=== PATIENT | female | born 1980 | race Caucasian/White ===

== ENCOUNTER 2017-04-20 16:43 | Emergency (ER) | payer BC ==
[~2017-04-20] VITALS: Ht 157.5 cm; Wt 69.4 kg
[~2017-04-20 16:43] MED LIST: ADDERALL 20 MG20 M1 PO; ADVAIR 250-501 EACH INH; ALLEGRA ALLERG180 MG; ALLERGY10 M2 PO; AMITRIPTYLINE H25 M2 PO; ATIVAN1 MG PO; AUGMENTIN 875875 MG PO; AZITHROMYCIN 2250 MG; BACTRIM DS TAB1 EACH PO; BENTYL 10 MG CA10 M1 PO; CARAFATE 1 GM TA1 G1 PO; CLINDAGEL40 ML TP; FLONASE16 GM; HYDROCODONE-AP1 EAC6 PO; IBUPROFEN 600600 M1 PO; IBUPROFEN 800800 M1 PO; LEVAQUIN 500 M500 M2; MACROBID 100 M100 M1 PO; MIRALAX17 GM PO; NOHOMEMEDICATIONS; NORCO 5-325 TA1 EACH PO; NORFLEX100 MG PO; PERCOCET 5-3251 EACH PO; PHENTERMINE H37.5 MG PO; PREMARIN VAGI42.5 G1 TOP; PROTONIX40 M1 PO; PYRIDIUM200 MG PO; REGLAN 10 MG TA10 MG PO; SPIRIVA RESPIMAT4 G1 IH; SPIRONOLACTONE50 MG PO; SUDAFED 12 HOU120 MG; TESSALON PERLE100 MG PO; TRAMADOL 50 MG50 MG PO; VALIUM2 MG PO; VENTOLIN HFA 1818 GM INH
[2017-04-20 16:44] VITALS: BP 119/72
[2017-04-20 17:17] LABS: URINE BILIRUBIN NEGATIVE (Negative); URINE BLOOD TRACE (Negative); URINE COLOR ORANGE; URINE GLUCOSE-RANDOM* TRACE (Negative); URINE KETONES NEGATIVE (Negative); URINE NITRITE POSITIVE (Negative); URINE PROTEIN (DIPSTICK) TRACE (Negative); URINE SPECIFIC GRAVITY 1.025 (1.003-1.035)
[2017-04-20 17:29] LABS: BACTERIA >30 Many /HPF (None Seen); CASTS None Seen /LPF (None Seen); CRYSTALS None Seen /LPF (None Seen); SQUAMOUS >10 Many /LPF (0-3); URINE RBC 0-2 Rare /HPF (0-2)
[2017-04-20 17:30] LABS: RENAL EPITHELIAL CELLS 0-3 Few /LPF (None Seen); URINE WBC 6-15 Few /HPF (0-5)
[2017-04-20 17:36] LABS: ABSOLUTE NEUTROPHILS 3.1 thou/uL (1.4-8.2); BASOPHILS 0.7 % (0.0-2.0); HEMATOCRIT 37.4 % (37.0-47.0); HEMOGLOBIN 12.8 gm/dL (12.0-15.0); LYMPHOCYTES 38.1 % (24.0-44.0); MCH 32.4 pg (26.0-34.0); MCHC 34.2 g/dL (28.0-37.0); MCV 94.7 fL (80.0-100.0); MONOCYTES 6.3 % (1.0-8.0); PLATELET COUNT 218 thou/uL (150-400); POLYS 53.9 % (36.0-66.0); RBC 3.95 mil/uL (4.20-5.00); RDW 12.9 % (10.5-14.5); WBC 5.7 thou/uL (4.0-11.0)
[2017-04-20 17:38] LABS: MANUAL DIFF NO
[2017-04-20] MEDS ORDERED: KEFLEX500 MG PO (17:41)
[2017-04-20 17:43] LABS: ANION GAP 9 mmol/L (7-16); BUN 10 mg/dL (7-18); CALCIUM 8.7 mg/dL (8.5-10.1); CHLORIDE 104 mmol/L (98-107); CO2 23 mmol/L (21-32); CREATININE 0.9 mg/dL (0.6-1.0); GLUCOSE 106 mg/dL (74-106); POTASSIUM 4.1 mmol/L (3.5-5.1); SODIUM 136 mmol/L (136-145)
[2017-04-20 17:49] LABS: ALBUMIN 3.6 g/dL (3.4-5.0); ALKALINE PHOSPHATASE 92 U/L (46-116); DIRECT BILIRUBIN < 0.1 mg/dL (<0.1-0.3); SGOT 14 U/L (15-37); SGPT 17 U/L (30-65); TOTAL BILIRUBIN 0.4 mg/dL (<0.1-1.0); TOTAL PROTEIN 6.8 g/dL (6.4-8.2)
[2017-04-20] MEDS ORDERED: NORCO 5-325 TA1 EACH PO (18:00)
== END 2017-04-20 18:33 | disposition home or self-care (01) ==
LOC: ER 16:43
PROVIDERS: Emergency Medicine
DX: N30.10 Interstitial cystitis (chronic) without hematuria (principal); F10.99 Alcohol use, unspecified with unspecified alcohol-induced disorder; Z90.49 Acquired absence of other specified parts of digestive tract; Z87.440 Personal history of urinary (tract) infections; Z90.710 Acquired absence of both cervix and uterus; Z88.8 Allergy status to other drugs, medicaments and biological substances; Z88.1 Allergy status to other antibiotic agents

== ENCOUNTER 2017-04-26 04:42 | Emergency (ER) | payer BC ==
[~2017-04-26] VITALS: Ht 157.5 cm; Wt 69.4 kg
[~2017-04-26 04:42] MED LIST changes: +KEFLEX500 MG PO
[2017-04-26 06:14] LABS: URINE BILIRUBIN NEGATIVE (Negative); URINE BLOOD TRACE (Negative); URINE COLOR ORANGE; URINE GLUCOSE-RANDOM* TRACE (Negative); URINE KETONES TRACE (Negative); URINE LEUKOCYTES-REFLEX NEGATIVE (Negative); URINE PROTEIN (DIPSTICK) 2+ (Negative); URINE SPECIFIC GRAVITY >= 1.030 (1.003-1.035)
[2017-04-26 06:24] LABS: CASTS None Seen /LPF (None Seen); SQUAMOUS 0-3 Few /LPF (0-3)
[2017-04-26 06:25] LABS: CALCIUM OXALATE 4-10 Moderate /LPF (None Seen); CRYSTALS ND /LPF (None Seen); URINE RBC 0-2 Rare /HPF (0-2); URINE WBC-REFLEX 0-5 Rare /HPF (0-5)
[2017-04-26 08:10] VITALS: BP 116/66
[2017-04-29 18:07] LABS: CHLAMYDIA TRACHOMATIS-PCR Negative (Negative); NEISSERIA GONORRHEA-PCR Negative (Negative)
== END 2017-04-26 08:12 | disposition home or self-care (01) ==
LOC: ER 04:42
PROVIDERS: Emergency Medicine
DX: R10.2 Pelvic and perineal pain (principal); F10.99 Alcohol use, unspecified with unspecified alcohol-induced disorder; Z87.440 Personal history of urinary (tract) infections; Z90.710 Acquired absence of both cervix and uterus; Z98.890 Other specified postprocedural states; Z88.1 Allergy status to other antibiotic agents; Z88.8 Allergy status to other drugs, medicaments and biological substances

== ENCOUNTER 2018-01-15 13:18 | Emergency (ER) | payer BC ==
[~2018-01-15] VITALS: Ht 157.5 cm; Wt 70.3 kg
[2018-01-15 13:18] VITALS: BP 126/82
[2018-01-15 14:09] LABS: URINE BILIRUBIN NEGATIVE (Negative); URINE BLOOD NEGATIVE (Negative); URINE CLARITY CLEAR; URINE COLOR YELLOW; URINE GLUCOSE-RANDOM* TRACE (Negative); URINE KETONES NEGATIVE (Negative); URINE LEUKOCYTES-REFLEX 1+ (Negative); URINE NITRITE-REFLEX POSITIVE (Negative); URINE PROTEIN (DIPSTICK) TRACE (Negative); URINE SPECIFIC GRAVITY 1.025 (1.005-1.035)
[2018-01-15 14:22] LABS: BACTERIA-REFLEX >30 Many /HPF (None Seen); SQUAMOUS 4-10 Moderate /LPF (0-3); URINE WBC-REFLEX 6-15 Few /HPF (0-5)
[2018-01-15 14:23] LABS: RENAL EPITHELIAL CELLS 0-3 Few /LPF (None Seen); TRANSITIONAL EPITHEL CELL 0-3 Few /LPF (None Seen); URINE RBC 3-10 Few /HPF (0-2); YEAST-REFLEX Present (None Seen)
[2018-01-15 14:24] LABS: CASTS None Seen /LPF (None Seen); CRYSTALS None Seen /LPF (None Seen); WBC CLUMPS Occasional (None Seen)
[2018-01-15] MEDS ORDERED: DIFLUCAN150 MG PO (14:48)
[2018-01-15] MEDS ORDERED: KEFLEX500 M1 PO (14:48)
[2018-01-15] MEDS ORDERED: TINIDAZOLE500 MG PO (14:51)
[2018-01-16 14:12] LABS: NEISSERIA GONORRHEA-PCR Negative (Negative)
== END 2018-01-15 15:19 | disposition home or self-care (01) ==
LOC: ER 13:18
PROVIDERS: Physician Assistant
DX: B37.3 Candidiasis of vulva and vagina (principal); Z20.2 Contact with and (suspected) exposure to infections with a predominantly sexual mode of transmission; N76.0 Acute vaginitis; N39.0 Urinary tract infection, site not specified; Z90.49 Acquired absence of other specified parts of digestive tract; Z90.710 Acquired absence of both cervix and uterus; Z88.8 Allergy status to other drugs, medicaments and biological substances

== ENCOUNTER 2019-03-09 17:47 | Emergency (ER) | payer BC ==
[~2019-03-09] VITALS: Ht 157.5 cm; Wt 68.0 kg
[~2019-03-09 17:47] MED LIST changes: +DIFLUCAN150 MG PO; +KEFLEX500 M1 PO; +TINIDAZOLE500 MG PO
[2019-03-09 18:23] VITALS: BP 130/78
[2019-03-09] MEDS ORDERED: EQUETRO200 MG PO (20:33)
[2019-03-09] MEDS ORDERED: MEDROLDOSEPACK PO (20:33)
== END 2019-03-09 21:30 | disposition home or self-care (01) ==
LOC: ER 17:47
DX: R51 Headache (principal); R21 Rash and other nonspecific skin eruption; T78.40XA Allergy, unspecified, initial encounter; Z90.49 Acquired absence of other specified parts of digestive tract; Z98.51 Tubal ligation status; Z90.710 Acquired absence of both cervix and uterus; Z88.1 Allergy status to other antibiotic agents; Z88.8 Allergy status to other drugs, medicaments and biological substances

== ENCOUNTER 2019-03-21 20:07 | Emergency (ER) | payer BC ==
[~2019-03-21] VITALS: Ht 157.5 cm; Wt 68.0 kg
[~2019-03-21 20:07] MED LIST changes: +EQUETRO200 MG PO; +MEDROLDOSEPACK PO
[2019-03-21 21:23] LABS: ABSOLUTE NEUTROPHILS 2.6 thou/uL (1.4-8.2); BASOPHILS 0.9 % (0.0-2.0); EOSINOPHILS 0.5 % (0.0-3.0); HEMATOCRIT 40.3 % (37.0-47.0); HEMOGLOBIN 13.9 gm/dL (12.0-15.0); LYMPHOCYTES 52.6 % (24.0-44.0); MCH 32.3 pg (26.0-34.0); MCHC 34.4 g/dL (28.0-37.0); MCV 93.8 fL (80.0-100.0); MONOCYTES 6.3 % (1.0-8.0); PLATELET COUNT 246 thou/uL (150-400); POLYS 39.7 % (36.0-66.0); RDW 12.3 % (10.5-14.5); WBC 6.5 thou/uL (4.0-11.0)
[2019-03-21 21:32] LABS: CALCIUM 8.8 mg/dL (8.5-10.1); CREATININE 0.6 mg/dL (0.6-1.0); POTASSIUM 3.7 mmol/L (3.5-5.1)
[2019-03-21 21:39] LABS: ALBUMIN 3.5 g/dL (3.4-5.0); TOTAL BILIRUBIN 0.2 mg/dL (<0.1-1.0); TOTAL PROTEIN 6.9 g/dL (6.4-8.2)
[2019-03-21 23:05] VITALS: BP 109/61
== END 2019-03-21 23:05 | disposition home or self-care (01) ==
LOC: ER 20:07
PROVIDERS: Physician Assistant
DX: M54.81 Occipital neuralgia (principal); M54.2 Cervicalgia; Z98.51 Tubal ligation status; Z90.49 Acquired absence of other specified parts of digestive tract; Z87.440 Personal history of urinary (tract) infections; Z90.710 Acquired absence of both cervix and uterus; Z88.1 Allergy status to other antibiotic agents; Z88.8 Allergy status to other drugs, medicaments and biological substances

== ENCOUNTER 2019-03-23 17:35 | Emergency (ER) | payer BC ==
[~2019-03-23] VITALS: Ht 157.5 cm; Wt 68.0 kg
[2019-03-23] MEDS ORDERED: ORPHENADRINE C100 M2 PO (19:14)
[2019-03-23] MEDS ORDERED: NAPROSYN500 MG PO (19:14)
[2019-03-23 20:05] VITALS: BP 130/93
[2019-03-24] MEDS ORDERED: ATIVAN0.5 MG PO (10:17)
[2019-03-24] MEDS ORDERED: ATIVAN1 MG PO (12:12)
[2019-03-24] MEDS ORDERED: TRAMADOL 50 MG50 MG PO (12:12)
== END 2019-03-23 20:06 | disposition home or self-care (01) ==
LOC: ER 17:35
DX: S29.012A Strain of muscle and tendon of back wall of thorax, initial encounter (principal); M54.9 Dorsalgia, unspecified; G89.29 Other chronic pain; Z90.49 Acquired absence of other specified parts of digestive tract; Z87.440 Personal history of urinary (tract) infections; Z90.710 Acquired absence of both cervix and uterus; Z98.51 Tubal ligation status; Z88.1 Allergy status to other antibiotic agents; Z88.8 Allergy status to other drugs, medicaments and biological substances; X58.XXXA Exposure to other specified factors, initial encounter; Y93.89 Activity, other specified; Y92.89 Other specified places as the place of occurrence of the external cause; Y99.8 Other external cause status

== ENCOUNTER 2019-03-24 09:49 | Emergency (ER) | payer BC ==
[~2019-03-24] VITALS: Ht 157.5 cm; Wt 68.0 kg
[~2019-03-24 09:49] MED LIST changes: +NAPROSYN500 MG PO; +ORPHENADRINE C100 M2 PO
[2019-03-24] MEDS ORDERED: ATIVAN0.5 MG PO (10:17)
[2019-03-24 10:29] LABS: HEMATOCRIT 41.2 % (37.0-47.0); HEMOGLOBIN 14.1 gm/dL (12.0-15.0); MCH 32.3 pg (26.0-34.0); MCHC 34.2 g/dL (28.0-37.0); MCV 94.5 fL (80.0-100.0); RBC 4.36 mil/uL (4.20-5.00); RDW 12.2 % (10.5-14.5); WBC 4.6 thou/uL (4.0-11.0)
[2019-03-24 10:35] LABS: CREATININE 0.7 mg/dL (0.6-1.0); POTASSIUM 3.9 mmol/L (3.5-5.1)
[2019-03-24 12:12] VITALS: BP 104/70
[2019-03-24] MEDS ORDERED: TRAMADOL 50 MG50 MG PO (12:12)
[2019-03-24] MEDS ORDERED: ATIVAN1 MG PO (12:12)
== END 2019-03-24 12:12 | disposition home or self-care (01) ==
LOC: ER 09:49
PROVIDERS: Emergency Medicine Emergency Medical Services
DX: F41.9 Anxiety disorder, unspecified (principal); M54.9 Dorsalgia, unspecified; T50.995A Adverse effect of other drugs, medicaments and biological substances, initial encounter; Z88.8 Allergy status to other drugs, medicaments and biological substances; Z90.49 Acquired absence of other specified parts of digestive tract; Z90.710 Acquired absence of both cervix and uterus; Y92.89 Other specified places as the place of occurrence of the external cause

== ENCOUNTER 2019-03-30 21:15 | Emergency (ER) | payer BC ==
[~2019-03-30] VITALS: Ht 157.5 cm; Wt 65.8 kg
[~2019-03-30 21:15] MED LIST changes: +ATIVAN0.5 MG PO
[2019-03-30] MEDS ORDERED: CELEXA10 MG PO (22:00)
[2019-03-30] MEDS ORDERED: CLONAZEPAM 0.50.5 M1 (22:01)
[2019-03-30] MEDS ORDERED: PRILOSEC OTC20 MG PO (22:37)
[2019-03-30] MEDS ORDERED: ONDANSETRON ODT4 MG PO (22:37)
[2019-03-30 22:48] VITALS: BP 122/73
[2019-03-31] MEDS ORDERED: GABAPENTIN 100100 MG PO (14:41)
== END 2019-03-30 22:53 | disposition home or self-care (01) ==
LOC: ER 21:15
DX: F41.9 Anxiety disorder, unspecified (principal); R11.2 Nausea with vomiting, unspecified; G89.29 Other chronic pain; M54.9 Dorsalgia, unspecified; Z90.710 Acquired absence of both cervix and uterus; Z98.890 Other specified postprocedural states; Z90.49 Acquired absence of other specified parts of digestive tract; Z87.440 Personal history of urinary (tract) infections; Z88.8 Allergy status to other drugs, medicaments and biological substances; Z88.1 Allergy status to other antibiotic agents

== ENCOUNTER → 2019-03-31 | Outpatient (CLI) | payer BC ==
[~2019-03-31] VITALS: Ht 157.5 cm; Wt 65.3 kg
[~2019-03-31] MED LIST changes: +CELEXA10 MG PO; +CLONAZEPAM 0.50.5 M1; +GABAPENTIN 100100 MG PO; +ONDANSETRON ODT4 MG PO; +PRILOSEC OTC20 MG PO
[2019-03-31 13:07] VITALS: BP 125/76
--- NOTE | 2019-03-31 13:40 | NUR ---
Pain Clinic Assessment: 1. History of Osteoarthritis: History of Rheumatoid Arthritis: 2. Height: 5 ft. 2 in. 157.5 cm. Weight: 144.0 lb. oz. 65.318 kg. Patient's BMI: 26.3 3. Vital Signs: BP: 125/76 Pulse: 102 Resp: 14 Temp: 02 Sat: 100 ECG Mon: 4. Pain Intensity: 8 5. Fall Risk: Dizziness: Y Needs help standing or walking: N Fallen in the last 3 months: N Fall risk comments: 6. Patient on Blood Thinner: None 7. History of Hypertension: N 8. Opioid Therapy greater than 6 weeks: N Opiate Contract Signed: 9. Risk Assessment Tool Provided: 10. Functional Assessment Tool: 11. Recreational Drug Use: Never Drug Type: Tobacco Use: Never Smoker Tobacco Type: Amount or Packs/day: How Many Years: Alcohol Use: No Frequency: Quant:
--- NOTE | 2019-04-16 08:26 | HPC ---
[facility] [address] [address] PAIN MANAGEMENT CONSULTATION Name: LIAT ARMENDARIZ Room #: REG Erika Tiana#: [id number] Admission: 03/31/19 Attend Phys: Gerda Horn MD Discharge: Date of : 78 Report #: [id number] THIS REPORT FOR: //name// CC: Shreya Horn DATE OF SERVICE: 03/31/2019 CHIEF COMPLAINT: Pain in the right neck and swelling in the right jaw. HISTORY: The patient is a 39-year-old female, who has been referred to the pain clinic for evaluation. She states that she had a cosmetic procedure. She states that there was some filler placed under her right eye. After the injection, she noted some increased pain and discomfort in the right side of her face. There was some swelling noted. She could see an area of erythema on the right lower jaw area, this was in 08/2018. Her perception is that during the procedure, the doctor may have, "hit her nerve." Because of the pain and discomfort, she sought treatment by a dentist and ENT doctor. It was felt that maybe the problem in her jaw might be secondary to grinding of her teeth. As time went on, she continues to note some increasing pain and discomfort. She describes it as though she had, "her brain was on fire." She felt that the pain radiated down into her feet, face, and into her spinal cord. Also, had a burning sensation and discomfort in the abdominal area. Because of this problem, she has had sometimes when she felt dizzy and anxious. For evaluation, the patient underwent an MRI. She has felt like the contrast was stuck in the base of her neck. She did have some episodes of feeling nauseated. Previous MRIs did not cause any similar symptoms. The patient did have some symptoms where there was ringing in her ears, had a yellow discharge from her nose, and the patient felt that she may have had hepatitis. Testing proved negative. The patient has had a panic attack in the past. She has noted on occasion some enlargement of the right side of her face with more erythema in the right lower jaw area. The patient has been seen in the Emergency Room on a number of occasions. It was felt that the patient did suffer from occipital neuralgia. A occipital nerve block was provided in the Emergency Room. The patient states that the injection placed her in a manic state. She feels that it was secondary to use of steroids. The patient felt that for about a week she had some dry heaves as well as some dryness in her mouth. The patient has been referred to [facility] to be evaluated with regards to mental health. She has been started on Celexa. She has visited with the psychiatrist in the past about 6 years ago. She works for [employer], but has not been able to work for the last few months because of her medical problems. She has a daughter, who is about 18 years old, [place] [address] PAIN MANAGEMENT CONSULTATION Name: LIAT ARMENDARIZ LISSETTE Room #: REG CLErika Montiel#: [id number] Admission: 03/31/19 Attend Phys: Gerda Horn MD Discharge: Date of : 78 Report #: [id number] has been quite stressed and that recently her committed suicide. PAST MEDICAL HISTORY: Asthma, emotional problems. PAST SURGICAL HISTORY: Cholecystectomy, frequent urinary tract infections, tubal ligation, air loss, teeth extraction, interstitial cystitis, ovarian cyst, fibroids removed from the vaginal area in 2014, vaginitis, and hysterectomy. She has appendectomy, , and tubal ligation. CURRENT MEDICATIONS: Clonazepam 0.5 mg q.8 hours and Celexa 10 mg. ALLERGIES: AMITRIPTYLINE, LUPRON, AND FLAGYL, 04/20/2017. 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 The patient works for [employer] and has not been able to work for the last 2 months. REVIEW OF SYSTEMS: Weight change, decreased appetite, night sweats, fatigue, weakness, headaches, blurred vision, hearing loss/ringing in the ears, sore throat, shortness of breath, heart trouble, palpitations, asthma, wheezing, bowel changes, frequent diarrhea, constipation, rectal bleeding/blood in stool, abdominal pain, musculoskeletal rash/itching, skin color changes, changes in the hair and nails, varicose vein, frequent reoccurring headaches, lightheadedness, dizziness, numbness and tingling sensation, tremors, memory loss, confusion, nervousness, depression, insomnia, excessive thirst, and heat and cold intolerance. PAIN CLINIC ASSESSMENT AND PQRS: 1. History of osteoarthritis. The patient is not being treated for osteoarthritis. She is not being treated for rheumatoid arthritis. 2. Pain intensity is 8/10. 3. Fall risk. The patient has not fallen in the last 3 months. 4. Blood thinner. The patient is not on a blood thinning medication. 5. Hypertension. The patient is not being treated for hypertension. 6. Opioids greater than 6 weeks. The patient is not on an opioid regimen. 7. Risk assessment tool, low for opioid use. 8. Functional assessment tool, 56/70. 9. Recreational drugs, negative. 10. Tobacco: The patient has never smoked. 11. Alcohol. The patient denies use of alcoholic beverages. PHYSICAL EXAMINATION: GENERAL: The patient is a well-developed, well-nourished white female. She appears her stated age. She is alert and oriented x 3. Her affect is appropriate. Speech is fluent. Height is 5 feet 2 inches, weight is 144 pounds, and BMI is 26.3. VITAL SIGNS: Blood pressure is 125/76, pulse is 102, respiratory rate is 14, [facility] [address] [place] [address] PAIN MANAGEMENT CONSULTATION Name: LIAT ARMENDARIZ Room #: REG [facility]#: [id number] Admission: 03/31/19 Attend Phys: Gerda Horn MD Discharge: Date of : 78 Report #: [id number] and room air saturation is 100%. HEENT: Normocephalic, atraumatic. Extraocular eye muscles intact. Sclerae nonicteric. Mucous membranes are moist. The patient has an area of redness on the right jaw area. HEART: Regular rate. LUNGS: Clear to auscultation. MUSCULOSKELETAL: Upper extremity muscle strength is judged to be 5-/5 for the major muscle groups in the upper extremity. ABDOMEN: The patient does complain of some abdominal pain. She complains of a burning sensation in the lower portion of her spine. Increased discomfort in her hands and her feet since use of steroids. The patient has a picture of her right jaw area. There are areas of redness in the jaw and there does appear to be some slight amount of swelling compared to the left side. There is much less redness today, not very much appreciable swelling. Palpation in the midline area of the patient's spine shows soreness in the interspinous areas from the cervical area down to the sacral area. Palpation in the muscles in the latissimus dorsi, trapezius, and rhomboids all have areas of soreness and the patient pulls away with palpation of these areas. IMPRESSION: 1. Myofascial pain. 2. Asthma. 3. Emotional problems. RECOMMENDATIONS: We have discussed the patient's situation with her. We spoke with the patient for 45 minutes regarding the possible causes of her pain and discomfort. I think a large component of the pain at this juncture is myofascial. I think the patient should seek physical therapy 3 times a week for 3 weeks. She has quite a bit of intensity in the occipital areas. Palpation near the left occipital area is tender in the trapezius as well as in the lateral muscles of her neck. She does have some redness about the size of a $0.25 on the right jaw area. I explained to the patient that sometimes when one gets nervous, some people respond by having areas of redness that developed on the neck area. Stress with elevated norepinephrine/epinephrine levels can cause some increase in intensity in the redness. Overall, I think that the patient is doing reasonably well. I do not see an place to do an injection. She has had such global soreness in her back area. The patient is moving in a very stiff manner. She will try physical therapy for 3 weeks. She can return to the pain clinic in the future. We may consider injection of trigger point areas should they present themselves. [address] [address] PAIN MANAGEMENT CONSULTATION Name: LIAT ARMENDARIZ Room #: REG CLErika Montiel#: [id number] Admission: 03/31/19 Attend Phys: Gerda Horn MD Discharge: Date of : 78 Report #: [id number] We would like to thank you for letting us to participate in her care. We hope she continues to improve. <ELECTRONICALLY SIGNED> By: Gerda Horn MD 04/16/19 0826 [id number] Gerda Horn MD /[facility]
== END ==
LOC: PAIN 07:09
DX: J45.909 Unspecified asthma, uncomplicated (principal); M54.5 Low back pain; M79.18 Myalgia, other site; Z79.899 Other long term (current) drug therapy; Z88.8 Allergy status to other drugs, medicaments and biological substances

== ENCOUNTER → 2019-04-21 | Outpatient (CLI) | payer BC ==
[~2019-04-21] VITALS: Ht 157.5 cm; Wt 68.5 kg
[2019-04-21 08:11] VITALS: BP 127/81
--- NOTE | 2019-04-21 08:28 | NUR ---
Pain Clinic Assessment: 1. History of Osteoarthritis: History of Rheumatoid Arthritis: 2. Height: 5 ft. 2 in. 157.5 cm. Weight: 151.0 lb. oz. 68.493 kg. Patient's BMI: 27.6 3. Vital Signs: BP: 127/81 Pulse: 82 Resp: 14 Temp: 02 Sat: 99 ECG Mon: 4. Pain Intensity: 4 5. Fall Risk: Dizziness: Y Needs help standing or walking: N Fallen in the last 3 months: N Fall risk comments: 6. Patient on Blood Thinner: None 7. History of Hypertension: N 8. Opioid Therapy greater than 6 weeks: N Opiate Contract Signed: 9. Risk Assessment Tool Provided: 10. Functional Assessment Tool: 11. Recreational Drug Use: Never Drug Type: Tobacco Use: Never Smoker Tobacco Type: Amount or Packs/day: How Many Years: Alcohol Use: No Frequency: Quant:
--- NOTE | 2019-05-14 08:14 | HPC ---
[facility] [address] [place] [address] PAIN MANAGEMENT CONSULTATION Name: LIAT ARMENDARIZ Room #: REG KLYE LozanoJ CarlosAbnerJ Carlos#: [id number] Admission: 04/21/19 Attend Phys: Gerda Horn MD Discharge: Date of : 78 Report #: [id number] THIS REPORT FOR: //name// CC: Shreya Horn DATE OF SERVICE: 04/21/2019 CHIEF COMPLAINT: The pain has improved. HISTORY: The patient is a 39-year-old female who has been seen in the pain clinic. As you may recall, she has had pain and discomfort after cosmetic procedure. A injection was placed under her right eye. She suffered from some swelling in the right lower maxillary area. Also, has some discomfort and erythema on her right lower jaw. The procedure was done in 08/2018. Overall, things have improved since we saw her last. She has noticed that the gabapentin appears to be helping. She feels that her whole head is a bit less painful. She recently had an MRI and was not found to have any significant pathology. She will be seen a psychiatrist soon. Still has some discomfort in her face, neck and in her shoulder. Overall, mentally and emotionally she is feeling more relaxed. As you may recall, her committed suicide. She does have a lot of stress secondary to raising a young daughter who is challenged. Her daughter is 18 years old. ALLERGIES: AMITRIPTYLINE, LUPRON, FLAGYL, 04/20/2017. PAIN CLINIC ASSESSMENT AND PQRS: 1. Height 5 feet 2 inches, weight 151 pounds, BMI is 27.6. 2. Vital signs: Blood pressure 127/81, pulse 82, respiratory rate 14, room air saturation 99%. 3. Pain intensity 10/14. 4. Fall history: The patient has not fallen since we saw her last. 5. Blood thinner. The patient is not on a blood thinning medication. 6. Hypertension. The patient is not being treated for hypertension. 7. Opioids greater than 6 weeks. 8. Risk assessment tool for opioids low. 9. Functional assessment tool, . 10. Recreational drug use. The patient denies. 11. Tobacco: The patient has never smoked. 12. Alcohol. The patient denies use of alcoholic beverages. PHYSICAL EXAMINATION: GENERAL: The patient is a well-developed, well-nourished white female. She is alert and oriented x 3. Her affect is appropriate. Speech is fluent. She appears much more relaxed on her initial visit. Her [place] 18 [place] [address] PAIN MANAGEMENT CONSULTATION Name: LIAT ARMENDARIZ Room #: REG [facility]#: [id number] Admission: 04/21/19 Attend Phys: Gerda Horn MD Discharge: Date of : 78 Report #: [id number] old and somewhat challenged is present. Her uncle/male family member is present. He was present with her on our initial visit. He has noted an increased calm in her and she is less stressed. HEENT: Normocephalic, atraumatic. Extraocular eye muscles intact. The patient has less redness over the right jaw area. HEART: Regular rate. LUNGS: Generally clear to auscultation. MUSCULOSKELETAL: 5-/5 for the major muscle groups in the upper extremity. ABDOMEN: Generally less problematic. EXTREMITIES: Lower extremity muscle strength judged to be 5/5 for the major muscle groups in the lower extremity. IMPRESSION: 1. Myofascial pain, improved. 2. Asthma. 3. Emotional problems more stable at this juncture. RECOMMENDATIONS: We discussed treatment options with the patient. The patient feels that the medications of gabapentin has been helpful. She is not having any complications from its use. We would recommend that she continue with the gabapentin medication and can increase this over time as needed. She will continue with 100 mg 1 p.o. t.i.d., she also will continue with the clonazepam 0.5 mg q. 8 hours p.r.n., Celexa 10 mg 1 p.o. daily. Overall, the patient feels that things are going better. She is feeling less anxious. We would recommend that she continue with the gabapentin medication. She had been provided a script for myofascial pain, evaluation and treatment at a physical therapist of her choice. Overall, things are going reasonably well and she will follow up in the pain clinic only as needed. We would like to thank you for letting us participate in her care. We are certainly glad that she is feeling better at this juncture. <ELECTRONICALLY SIGNED> By: Gerda Horn MD 05/14/19 0814 [id number] Gerda Horn MD /[facility]
== END ==
LOC: PAIN 06:50
DX: G89.29 Other chronic pain (principal); M79.18 Myalgia, other site; J45.909 Unspecified asthma, uncomplicated

== ENCOUNTER → 2019-07-02 | Outpatient (CLI) | payer BC ==
[~2019-07-02] MED LIST changes: +LITHIUM CARBON300 M3 PO
[2019-07-02 13:56] VITALS: BP 116/91
--- NOTE | 2019-07-02 14:02 | NUR ---
Pain Clinic Assessment: 1. History of Osteoarthritis: History of Rheumatoid Arthritis: 2. Height: ft. in. cm. Weight: 174.4 lb. oz. 79.107 kg. Patient's BMI: 3. Vital Signs: BP: 116/91 Pulse: 92 Resp: 16 Temp: 02 Sat: 98 ECG Mon: 4. Pain Intensity: 5-6 5. Fall Risk: Dizziness: N Needs help standing or walking: N Fallen in the last 3 months: N Fall risk comments: 6. Patient on Blood Thinner: None 7. History of Hypertension: N 8. Opioid Therapy greater than 6 weeks: N Opiate Contract Signed: 9. Risk Assessment Tool Provided: 10. Functional Assessment Tool: 11. Recreational Drug Use: Never Drug Type: Tobacco Use: Never Smoker Tobacco Type: Amount or Packs/day: How Many Years: Alcohol Use: No Frequency: Quant:
--- NOTE | 2019-07-06 14:24 | HPC ---
[facility] [place] [address] PAIN MANAGEMENT CONSULTATION Name: LIAT ARMENDARIZ Room #: REG KYLE Tiana#: [id number] Admission: 07/02/19 Attend Phys: Gedra Horn MD Discharge: Date of : 78 Report #: [id number] THIS REPORT FOR: //name// CC: Shreya Horn DATE OF SERVICE: 07/02/2019 CHIEF COMPLAINT: Overall, things have improved, but I am still having some pain. HISTORY: The patient is a 39-year-old female who has been seen in the Pain Clinic. As you may recall, she had a cosmetic procedure. After injection under her right eye, she suffered increased pain and discomfort. This involved the maxillary area. She has been under a lot of stress. Her committed suicide. She does have a daughter who has special needs. She felt that her life was quite overwhelmed at the last time we saw her. She feels that she is now on lithium. She feels that her medications have decrease some of that feeling of the anxiety. She still is coping with the reality of raising her daughter alone. She feels overall that things are going reasonably well. Does have some burning on the right side of her face at times. She has returned to the Pain Clinic for evaluation. ALLERGIES: AMITRIPTYLINE, LUPRON, FLAGYL on 04/20/2017. PAIN CLINIC ASSESSMENT AND PQRS: 1. Height 5 feet 2 inches, weight 174 pounds, BMI is 27.6. 2. Blood pressure 116/91, pulse 92, respiratory rate 16, and room air saturation is 98%. 3. Pain intensity 5-6/10. 4. Fall risk. The patient has not fallen in the last 3 months. 5. Blood thinner. The patient is not on a blood thinning medication. 6. Hypertension. The patient is not being treated for hypertension. 7. Opioids greater than 6 weeks. The patient is not on a regular opioid regimen. 8. Risk assessment tool, low for opioids. 9. Functional assessment tool, 56/70. 10. Recreational drug use: The patient denies. 11. Tobacco: The patient has never smoked. 12. Alcohol. The patient denies frequent use of alcoholic beverages. PHYSICAL EXAMINATION: GENERAL: The patient is a well-developed, well-nourished female. Has some right-sided facial discomfort. Complains of some pain and discomfort in her right neck as well as in her shoulder. Notes a burning, throbbing discomfort on occasion. Rates it as a 5-6. The patient is unaccompanied. States that her [address] [address] PAIN MANAGEMENT CONSULTATION Name: LIAT ARMENDARIZ Room #: REG [facility]#: [id number] Admission: 07/02/19 Attend Phys: Gerda Horn MD Discharge: Date of : 78 Report #: [id number] uncle is out in the car. HEENT: Atraumatic. Extraocular eye muscles intact. There is no outward swelling or skin changes noted on her jaw. HEART: Regular rate. LUNGS: Generally clear to auscultation. ABDOMEN: Less problematic. MUSCULOSKELETAL: Without significant scoliosis, kyphosis or lordosis. Upper extremity muscle strength judged to be 5-/5 for the major muscle groups. Lower extremity muscle strength judged to be 5/5 for the major muscle groups in the lower extremity. IMPRESSION: 1. History of right-sided facial pain with neck and shoulder discomfort. 2. Asthma. 3. Emotional problems more stable at this juncture. RECOMMENDATIONS: We discussed treatment options with the patient. At this juncture, she will continue with the gabapentin medication. She feels that this medication continues to be somewhat helpful. She feels that the lithium medication has taken some of the edge off of her feelings of anxiety. She still feels like she is a little bit edgy, but feels that she is much more functional than she was when we saw her a few months or so ago. Overall, things are going reasonably well. She will continue with her medications. The patient will continue with the Neurontin 100 mg 3 times daily. She can increase this to two tablets or a total of 200 mg in the morning and continue with 100 mg the other 2 times a day for a total of 400 mg. We explained to the patient that she should check with her physician who is providing the lithium for possible side effects if she is experiencing any. We would like to thank you for letting us participate in her care. She will return to the Pain Clinic on a p.r.n. basis. <ELECTRONICALLY SIGNED> By: Gerda Horn MD 07/06/19 1424 [id number] Gerda Horn MD /[facility]
== END ==
LOC: PAIN 06:54
DX: R52 Pain, unspecified (principal); J45.909 Unspecified asthma, uncomplicated

== ENCOUNTER → 2019-11-26 | Emergency (ER) | payer BC ==
[~2019-11-26] VITALS: Ht 157.5 cm; Wt 74.8 kg
[~2019-11-26] MED LIST changes: +ADDERALL 15 MG15 MG PO; +ADVAIR 100-501 EACH INH; +FLONASE 0.05%50 MCG NASAL; +NEOMYCIN SULFA500 MG PO; +NORCO 5-325 TA1 EAC1 PO; +SPIRIVA RESPIMAT4 G1 INH; +XIFAXAN550 M1 PO; +[UNRECOGNIZED DRUG - OTHER] NASAL
[2019-11-26 13:46] LABS: URINE BILIRUBIN NEGATIVE (Negative); URINE BLOOD NEGATIVE (Negative); URINE CLARITY CLEAR; URINE COLOR YELLOW; URINE GLUCOSE-RANDOM* NEGATIVE (Negative); URINE KETONES NEGATIVE (Negative); URINE LEUKOCYTES-REFLEX NEGATIVE (Negative); URINE NITRITE-REFLEX NEGATIVE (Negative); URINE PROTEIN (DIPSTICK) NEGATIVE (Negative); URINE SPECIFIC GRAVITY <= 1.005 (1.005-1.035); URINE UROBILINOGEN 0.2 E.U./dl (0.2-1.0)
[2019-11-26 13:55] LABS: ABSOLUTE NEUTROPHILS 3.5 thou/uL (1.4-8.2); BASOPHILS 0.5 % (0.0-2.0); EOSINOPHILS 0.6 % (0.0-3.0); HEMATOCRIT 42.1 % (37.0-47.0); HEMOGLOBIN 14.2 gm/dL (12.0-15.0); LYMPHOCYTES 32.4 % (24.0-44.0); MCH 31.7 pg (26.0-34.0); MCHC 33.8 g/dL (28.0-37.0); MCV 93.9 fL (80.0-100.0); MONOCYTES 8.8 % (1.0-8.0); PLATELET COUNT 323 thou/uL (150-400); POLYS 57.7 % (36.0-66.0); RBC 4.48 mil/uL (4.20-5.00); RDW 13.1 % (10.5-14.5)
[2019-11-26 13:59] LABS: CALCIUM 8.9 mg/dL (8.5-10.1); CREATININE 0.9 mg/dL (0.6-1.0); POTASSIUM 3.7 mmol/L (3.5-5.1)
[2019-11-26 14:05] LABS: ALBUMIN 4.1 g/dL (3.4-5.0); TOTAL BILIRUBIN 0.7 mg/dL (<0.1-1.0); TOTAL PROTEIN 7.8 g/dL (6.4-8.2)
[2019-11-26 15:50] VITALS: BP 101/62
== END ==
LOC: ER 12:37
PROVIDERS: Physician Assistant
DX: K62.89 Other specified diseases of anus and rectum (principal); R10.84 Generalized abdominal pain; Z88.8 Allergy status to other drugs, medicaments and biological substances; Z98.51 Tubal ligation status; Z98.890 Other specified postprocedural states; Z90.710 Acquired absence of both cervix and uterus; Z90.49 Acquired absence of other specified parts of digestive tract

== ENCOUNTER → 2019-12-01 | Outpatient (CLI) | payer BC | LOC: RAD 09:54 | DX: J45.40 Moderate persistent asthma, uncomplicated (principal) ==

== ENCOUNTER → 2019-12-22 | Outpatient (CLI) | payer BC ==
[~2019-12-22] VITALS: Ht 157.5 cm; Wt 74.2 kg
[~2019-12-22] MED LIST changes: +DEXILANT60 MG PO; +NORTRIPTYLINE H25 M3 PO
[2019-12-22 08:21] VITALS: BP 121/76
--- NOTE | 2019-12-22 08:42 | NUR ---
Pain Clinic Assessment: 1. History of Osteoarthritis: NONE History of Rheumatoid Arthritis: NONE 2. Height: 5 ft. 2 in. 157.5 cm. Weight: 163.6 lb. oz. 74.208 kg. Patient's BMI: 29.9 3. Vital Signs: BP: 121/76 Pulse: 73 Resp: 16 Temp: 02 Sat: 100 ECG Mon: 4. Pain Intensity: 9-AFTER SHIFT OF WORK 5. Fall Risk: Dizziness: Y Needs help standing or walking: N Fallen in the last 3 months: N Fall risk comments: 6. Patient on Blood Thinner: None 7. History of Hypertension: N 8. Opioid Therapy greater than 6 weeks: N Opiate Contract Signed: 9. Risk Assessment Tool Provided: 8-HIGH 10. Functional Assessment Tool: 49/70 11. Recreational Drug Use: Never Drug Type: Tobacco Use: Never Smoker Tobacco Type: Amount or Packs/day: How Many Years: Alcohol Use: No Frequency: Quant:
--- NOTE | 2020-01-03 08:09 | HPC ---
[facility] [place] [place] [address] PAIN MANAGEMENT CONSULTATION Name: LIAT ARMENDARIZ Room #: REG [facility].#: [id number] Admission: 12/22/19 Attend Phys: Gerda Horn MD Discharge: Date of : 78 Report #: [id number] THIS REPORT FOR: cc: Shreya Martinez MD,Shreya Horn,Gerda Bueno MD ~ CC: Shreya Horn DATE OF SERVICE: 12/22/2019 CHIEF COMPLAINT: Had a concussion after a fall. I have been started on Neurontin now and nortriptyline. I am having some problems with these two medications. The patient complains of some pain throughout her whole body. She is having some difficulty with sleep. States that she has a "burning in her brain." Some of this discomfort goes into her stomach. She has been treated for an abdominal infection. She feels that there is some signals, which are somewhat problematic in her spine. She continues to work. She works for [employer]. She has some concerns about her medications. She states that she wakes up shaking and pain. Pain goes into her arms and hands. ALLERGIES: AMITRIPTYLINE, LUPRON, FLAGYL on 04/20/2017. CURRENT MEDICATIONS: Dexilant 60 mg, nortriptyline 25 mg at bedtime, Flonase 0.05% nasal spray, Adderall 15 mg, Astelin nasal spray, Advair Diskus 100/50 b.i.d., Spiriva Respimat b.i.d., Bentyl 10 mg q.i.d., lithium carbonate 300 mg at bedtime, gabapentin 100 mg 3 times daily, clonazepam 0.5 mg q.8 hours p.r.n. anxiety. PAIN CLINIC ASSESSMENT AND PQRS: 1. The patient is not being treated for osteoarthritis. She is not being treated for rheumatoid arthritis. 2. Height 5 feet 2 inches, weight 163 pounds, BMI is 29.9. 3. Vital signs: Blood pressure 121/76, pulse 73, respiratory rate 16, room air saturation 100%. 4. Pain intensity is 9 after completing her work shift at [email or web address]. 5. Fall history: The patient has not fallen. 6. Blood thinner. The patient is not on a blood thinning medication. 7. Hypertension. The patient is not being treated for hypertension. 8. Opioids. The patient is not on an opioid regimen on a regular basis. 9. Risk assessment tool is high for opioid use. 10. Functional assessment tool 49/70. 11. Recreational drug use. The patient denies. 12. Tobacco: The patient has never smoked. 13. Alcohol. The patient denies use of alcoholic beverages. [address] [address] PAIN MANAGEMENT CONSULTATION Name: LIAT ARMENDARIZ Room #: REG CLI [facility]#: [id number] Admission: 12/22/19 Attend Phys: Gerda Horn MD Discharge: Date of : 78 Report #: [id number] PHYSICAL EXAMINATION: GENERAL: The patient is a well-developed, well-nourished female. She appears somewhat nervous and anxious today. She is unaccompanied. HEENT: Atraumatic. Extraocular eye muscles intact. HEART: Regular rate. LUNGS: Clear. ABDOMEN: The patient complains of some abdominal pain and discomfort MUSCULOSKELETAL: The patient without significant scoliosis, kyphosis, or lordosis. Upper extremity muscle strength judged to be 5/5 for the major muscle groups in the upper extremity. Lower extremity muscle strength judged to be 5/5 for the major muscle groups in the lower extremity. IMPRESSION: 1. Emotional problems with feelings of pain in her body. 2. Asthma. 3. History of gastrointestinal complaints. The patient has seen her director of digital platforms. She has been examined through endoscope as well as colonoscopy. 4. Abdominal pain. The patient states that she does see her physician, Dr. Her. She does not feel that there are any significant female problems at this juncture. Does complain of some rectal pain. RECOMMENDATIONS: The patient does have complaints of pain and discomfort. She has feelings of discomfort in the rectal area. She states that she is seeing her MOLECULAR PATHOLOGIST doctor and he has not found anything significant, which would be responsible for her discomfort. The patient was seen in the Emergency Room and states that she is being followed up by her director of digital platforms. I have explained that continuation of her current medications seem to be in order. I am not sure what other items we would have to offer at this juncture. Does complain of some burning and shooting pain and numbness in her arms. Possibility of cervical injection if that becomes more problematic might be an option. A visit to the physical therapist might be an option in the future. At this juncture, we will continue with her current medical regimen as it is. I am not sure that I have anything new to offer at this juncture. We would like to thank you for letting us participate in her care. We hope she continues to improve. <ELECTRONICALLY SIGNED> By: Gerda Horn MD 01/03/20 [id number] Gerda Horn MD /nt
== END ==
LOC: PAIN 06:48
PROVIDERS: ATTEND Anesthesiology Pain Medicine
DX: M79.10 Myalgia, unspecified site (principal); J45.909 Unspecified asthma, uncomplicated; R10.9 Unspecified abdominal pain; Z87.19 Personal history of other diseases of the digestive system; Z88.8 Allergy status to other drugs, medicaments and biological substances; Z79.899 Other long term (current) drug therapy

== ENCOUNTER → 2020-05-19 | Outpatient (CLI) | payer BC | LOC: LAB 10:19 | PROVIDERS: ATTEND Internal Medicine | DX: R05 Cough (principal); R06.02 Shortness of breath; Z20.828 Contact with and (suspected) exposure to other viral communicable diseases ==

== ENCOUNTER → 2020-07-21 | Outpatient (CLI) | payer BC ==
[~2020-07-21] VITALS: Ht 157.5 cm; Wt 77.5 kg
[~2020-07-21] MED LIST changes: +FAMOTIDINE40 MG PO; +FLONASE 0.05%50 MCG NARES; +LINZESS290 MCG PO; +LORAZEPAM 0.50.5 MG PO; +NURTEC ODT75 MG PO; +VITAMIN D350 MCG PO; +ZINC PO; -[UNRECOGNIZED DRUG - OTHER] NASAL; +[UNRECOGNIZED DRUG - OTHER] PO
[2020-07-21 10:54] VITALS: BP 130/93
--- NOTE | 2020-07-21 11:05 | NUR ---
Pain Clinic Assessment: 1. History of Osteoarthritis: NONE History of Rheumatoid Arthritis: NONE 2. Height: 5 ft. 2 in. 157.5 cm. Weight: 170.8 lb. oz. 77.474 kg. Patient's BMI: 31.2 3. Vital Signs: BP: 130/93 Pulse: 89 Resp: 16 Temp: 02 Sat: 99 ECG Mon: 4. Pain Intensity: 7 NOW 5. Fall Risk: Dizziness: Y Needs help standing or walking: N Fallen in the last 3 months: N Fall risk comments: 6. Patient on Blood Thinner: None 7. History of Hypertension: N 8. Opioid Therapy greater than 6 weeks: N Opiate Contract Signed: 9. Risk Assessment Tool Provided: 8-HIGH 10. Functional Assessment Tool: 49/70 11. Recreational Drug Use: Never Drug Type: Tobacco Use: Never Smoker Tobacco Type: Amount or Packs/day: How Many Years: Alcohol Use: No Frequency: Quant:
== END | disposition home or self-care (01) ==
LOC: PAIN 06:58
PROVIDERS: ATTEND Anesthesiology Pain Medicine
DX: M54.81 Occipital neuralgia (principal); G89.29 Other chronic pain; J45.909 Unspecified asthma, uncomplicated; G43.909 Migraine, unspecified, not intractable, without status migrainosus; F32.9 Major depressive disorder, single episode, unspecified; F41.9 Anxiety disorder, unspecified; Z88.8 Allergy status to other drugs, medicaments and biological substances; Z98.890 Other specified postprocedural states; Z79.899 Other long term (current) drug therapy; Z90.710 Acquired absence of both cervix and uterus; Z98.51 Tubal ligation status

== ENCOUNTER → 2020-08-04 | Outpatient (CLI) | payer BC ==
[~2020-08-04] VITALS: Ht 157.5 cm; Wt 78.5 kg
[2020-08-04 10:33] VITALS: BP 140/82
--- NOTE | 2020-08-04 10:37 | NUR ---
Pain Clinic Assessment: 1. History of Osteoarthritis: NONE History of Rheumatoid Arthritis: NONE 2. Height: 5 ft. 2 in. 157.5 cm. Weight: 173.0 lb. oz. 78.472 kg. Patient's BMI: 31.6 3. Vital Signs: BP: 140/82 Pulse: 81 Resp: 16 Temp: 02 Sat: 99 ECG Mon: 4. Pain Intensity: 8 5. Fall Risk: Dizziness: N Needs help standing or walking: N Fallen in the last 3 months: N Fall risk comments: 6. Patient on Blood Thinner: None 7. History of Hypertension: N 8. Opioid Therapy greater than 6 weeks: N Opiate Contract Signed: 9. Risk Assessment Tool Provided: 8-HIGH 10. Functional Assessment Tool: 49/70 11. Recreational Drug Use: Never Drug Type: Tobacco Use: Never Smoker Tobacco Type: Amount or Packs/day: How Many Years: Alcohol Use: No Frequency: Quant:
== END | disposition home or self-care (01) ==
LOC: PAIN 06:57
PROVIDERS: ATTEND Anesthesiology Pain Medicine
DX: M54.81 Occipital neuralgia (principal); M79.18 Myalgia, other site; J45.909 Unspecified asthma, uncomplicated; G43.909 Migraine, unspecified, not intractable, without status migrainosus; F32.9 Major depressive disorder, single episode, unspecified; Z98.890 Other specified postprocedural states; Z79.899 Other long term (current) drug therapy; Z87.19 Personal history of other diseases of the digestive system; Z98.51 Tubal ligation status; Z90.710 Acquired absence of both cervix and uterus; Z90.49 Acquired absence of other specified parts of digestive tract; Z88.8 Allergy status to other drugs, medicaments and biological substances